=== PATIENT | female | born 1960 | race Caucasian/White ===

== ENCOUNTER 2016-11-07 07:58 | Emergency (ER) | payer SELFPAY ==
[~2016-11-07] VITALS: Ht 165.1 cm; Wt 98.1 kg
[~2016-11-07 07:58] MED LIST: AMOX875 PO; BENZ100 PO
[2016-11-07 08:01] VITALS: BP 179/100; PULSE 94; RESP 16; TEMP 98.2; O2SAT 100
[2016-11-07] MEDS ORDERED: SODIUM CHLOR 0.9% 1000 ML INJ 1,000 ML IV SCH (08:18)
--- NOTE | 2016-11-07 08:24 | PD ---
HPI Chief Complaint: GI Complaint Time Seen by Provider: 08:18 Travel History International Travel<30 days: No Contact w/Intl Traveler<30days: No Traveled to known affect area: No History of Present Illness HPI The patient is a 56-year-old female who presents to the emergency department for hematuria and hematochezia. Patient has a one day history of hematuria, states she had bright red blood in her urine yesterday. The patient states she had mild frequency and low back pain yesterday with urination, however, denies any symptoms today. She also complains of one episode of bright red blood on top of her stool yesterday. The patient denies any known history of hemorrhoids or diverticulosis. The patient does complain of low back pain, has a history of hematuria secondary to nephrolithiasis in the past. However, she states this pain, discomfort, and hematuria is different than her previous episodes related to nephrolithiasis. The patient also complains of a dry nonproductive cough without any shortness of breath. The patient does have a history of tobacco use. She denies any fever, chills, or sweats. She does note mild nausea but denies any vomiting or diarrhea. The patient does not currently have a primary physician and has never undergone colonoscopy in the past. PFSH Past Medical History Diminished Hearing: No Hypertension: Yes (NOT TREATED) Kidney Stones: Yes Integumentary: Yes (MRSA) Influenza Vaccination: No ?: Not Menopausal: Yes Past Surgical History Abdominal Surgery: Yes (RT ADRENAL TUMOR REMOVED) Endocrine Surgery: Yes (ADRENAL GLAND REMOVED ON KIDNEY) Genitourinary Surgery: Yes Pacemaker: No Other Surgery: Yes (SURGERY X 4 R 3RD FINGER; MRSA) Social History Alcohol Use: No Tobacco Use: Yes (/2 PPD) Substance Use: No Allergies-Medications (Allergen,Severity, Reaction): Coded Allergies: Toradol (Verified Allergy, Severe, "I GOT ANXIETY", 11/07/16) Reported Meds & Prescriptions Reported Meds & Active Scripts Active No Active Prescriptions or Reported Medications Review of Systems Except as stated in HPI: all other systems reviewed are Neg General / Constitutional: No: Fever Cardiovascular: No: Chest Pain or Discomfort Respiratory: Positive: Cough, No: Shortness of Breath Gastrointestinal: Positive: Nausea, Hematochezia, No: Vomiting, Diarrhea, Abdominal Pain Genitourinary: Positive: Urgency, Hematuria, No: Flank Pain Musculoskeletal: No: Weakness Neurologic: No: Dizziness Physical Exam Narrative GENERAL: Awake, alert, nontoxic-appearing 56-year-old female who appears her stated age and is in no acute respiratory distress. SKIN: Warm and dry. HEAD: Atraumatic. Normocephalic. EYES: No injection or drainage. ENT: No nasal bleeding or discharge. Mucous membranes pink and moist. NECK: Trachea midline. No JVD. CARDIOVASCULAR: Regular rate and rhythm. No murmur appreciated. RESPIRATORY: No accessory muscle use. Clear to auscultation. Breath sounds equal bilaterally. GASTROINTESTINAL: Abdomen soft, non-tender, nondistended. Rectal: Exam was performed in the presence of a female nurse. No visible external hemorrhoids. No gross blood on digital exam. Guaiac negative. Back: No CVA tenderness. MUSCULOSKELETAL: No obvious deformities. No clubbing. No cyanosis. No edema. NEUROLOGICAL: Awake and alert. No obvious cranial nerve deficits. Motor grossly within normal limits. Normal speech. PSYCHIATRIC: Appropriate mood and affect; insight and judgment normal. Data Data Last Documented VS Vital Signs Date Time Temp Pulse Resp B/P Pulse Ox O2 Delivery O2 Flow Rate FiO2 11/07/16 08:33 100 Room Air 11/07/16 08:01 98.2 94 16 179/100 Orders Urinalysis - C+S If Indicated (11/07/16 08:02) Complete Blood Count With Diff (11/07/16 08:18) Comprehensive Metabolic Panel (11/07/16 08:18) Prothrombin Time / Inr (Pt) (11/07/16 08:18) Act Partial Throm Time (Ptt) (11/07/16 08:18) Ct Abd/Pel W/O Iv Contrast (11/07/16 08:18) Iv Access Insert/Monitor (11/07/16 08:18) Ecg Monitoring (11/07/16 08:18) Oximetry (11/07/16 08:18) Sodium Chlor 0.9% 1000 Ml Inj (Ns 1000 M (11/07/16 08:18) Sodium Chloride 0.9% Flush (Ns Flush) (11/07/16 08:30) Chest, Single Ap (11/07/16 08:18) Ed Urine Pregnancytest Poc (11/07/16 08:18) Acetaminophen (Tylenol) (11/07/16 09:15) Labs Laboratory Tests Test 11/07/16 11/07/16 08:10 08:50 Urine Collection Type CLEAN CATCH Urine Color YELLOW Urine Turbidity CLEAR Urine pH 6.0 Urine Specific [place] 1.020 Urine Protein NEG mg/dL Urine Glucose (UA) NEG mg/dL Urine Ketones NEG mg/dL Urine Occult Blood LARGE Urine Nitrite NEG Urine Bilirubin NEG Urine Leukocyte Esterase TRACE Urine RBC 20-24 /hpf Urine WBC 0-2 /hpf Urine Squamous Epithelial 0-5 /hpf Cells Microscopic Urinalysis Comment CULT NOT INDICATED White Blood Count 7.3 TH/MM3 Red Blood Count 5.54 MIL/MM3 Hemoglobin 15.6 GM/DL Hematocrit 46.5 % Mean Corpuscular Volume 84.0 FL Mean Corpuscular Hemoglobin 28.2 PG Mean Corpuscular Hemoglobin 33.6 % Concent Red Cell Distribution Width 12.5 % Platelet Count 260 TH/MM3 Mean Platelet Volume 8.7 FL Neutrophils (%) (Auto) 67.3 % Lymphocytes (%) (Auto) 25.0 % Monocytes (%) (Auto) 5.0 % Eosinophils (%) (Auto) 1.9 % Basophils (%) (Auto) 0.8 % Neutrophils # (Auto) 4.9 TH/MM3 Lymphocytes # (Auto) 1.8 TH/MM3 Monocytes # (Auto) 0.4 TH/MM3 Eosinophils # (Auto) 0.1 TH/MM3 Basophils # (Auto) 0.1 TH/MM3 CBC Comment DIFF FINAL Differential Comment Prothrombin Time 10.4 SEC Prothromb Time International 0.9 RATIO Ratio Activated Partial 26.3 SEC Thromboplast Time Sodium Level 144 MEQ/L Potassium Level 3.9 MEQ/L Chloride Level 109 MEQ/L Carbon Dioxide Level 27.3 MEQ/L Anion Gap 8 MEQ/L Blood Urea Nitrogen 13 MG/DL Creatinine 0.67 MG/DL Estimat Glomerular Filtration 92 ML/MIN Rate Random Glucose 97 MG/DL Calcium Level 8.6 MG/DL Total Bilirubin 0.8 MG/DL Aspartate Amino Transf 8 U/L (AST/SGOT) Alanine Aminotransferase 11 U/L (ALT/SGPT) Alkaline Phosphatase 109 U/L Total Protein 6.8 GM/DL Albumin 3.5 GM/DL MDM Medical Decision Making Medical Screen Exam Complete: Yes Emergency Medical Condition: Yes Medical Record Reviewed: Yes Interpretation(s) Laboratory Tests Test 11/07/16 11/07/16 08:10 08:50 Urine Collection Type CLEAN CATCH Urine Color YELLOW Urine Turbidity CLEAR Urine pH 6.0 Urine Specific [place] 1.020 Urine Protein NEG mg/dL Urine Glucose (UA) NEG mg/dL Urine Ketones NEG mg/dL Urine Occult Blood LARGE Urine Nitrite NEG Urine Bilirubin NEG Urine Leukocyte Esterase TRACE Urine RBC 20-24 /hpf Urine WBC 0-2 /hpf Urine Squamous Epithelial 0-5 /hpf Cells Microscopic Urinalysis Comment CULT NOT INDICATED White Blood Count 7.3 TH/MM3 Red Blood Count 5.54 MIL/MM3 Hemoglobin 15.6 GM/DL Hematocrit 46.5 % Mean Corpuscular Volume 84.0 FL Mean Corpuscular Hemoglobin 28.2 PG Mean Corpuscular Hemoglobin 33.6 % Concent Red Cell Distribution Width 12.5 % Platelet Count 260 TH/MM3 Mean Platelet Volume 8.7 FL Neutrophils (%) (Auto) 67.3 % Lymphocytes (%) (Auto) 25.0 % Monocytes (%) (Auto) 5.0 % Eosinophils (%) (Auto) 1.9 % Basophils (%) (Auto) 0.8 % Neutrophils # (Auto) 4.9 TH/MM3 Lymphocytes # (Auto) 1.8 TH/MM3 Monocytes # (Auto) 0.4 TH/MM3 Eosinophils # (Auto) 0.1 TH/MM3 Basophils # (Auto) 0.1 TH/MM3 CBC Comment DIFF FINAL Differential Comment Prothrombin Time 10.4 SEC Prothromb Time International 0.9 RATIO Ratio Activated Partial 26.3 SEC Thromboplast Time Sodium Level 144 MEQ/L Potassium Level 3.9 MEQ/L Chloride Level 109 MEQ/L Carbon Dioxide Level 27.3 MEQ/L Anion Gap 8 MEQ/L Blood Urea Nitrogen 13 MG/DL Creatinine 0.67 MG/DL Estimat Glomerular Filtration 92 ML/MIN Rate Random Glucose 97 MG/DL Calcium Level 8.6 MG/DL Total Bilirubin 0.8 MG/DL Aspartate Amino Transf 8 U/L (AST/SGOT) Alanine Aminotransferase 11 U/L (ALT/SGPT) Alkaline Phosphatase 109 U/L Total Protein 6.8 GM/DL Albumin 3.5 GM/DL Last Impressions Chest X-Ray 11/07/16 0818 Signed Impressions: Service Date/Time: Monday, November 07, 2016 08:32 - CONCLUSION: Normal examination. Sandeep Pickering MD Abdomen/Pelvis CT 1/25/17 0818 Signed Impressions: Service Date/Time: Monday, November 07, 2016 09:02 - CONCLUSION: 1 cm calculus right kidney in the pelvis at the UPJ. Varying areas of cortical retraction midpole of the right kidney secondary to remote inflammatory change and a few punctate calyceal nonobstructing stones. Uncomplicated diverticuli descending and sigmoid colon. Sandeep Pickering MD Differential Diagnosis Differential diagnosis includes hemorrhagic cystitis, cystitis, nephrolithiasis , internal hemorrhoids, diverticulosis, upper GI bleed, colon cancer, anal fissure. Narrative Course IV was established, labs were drawn and sent, and the patient was placed on cardiac telemetry monitoring and continuous pulse oximetry monitoring. Rectal exam was performed, no gross blood on exam and exam was guaiac negative. CT of the abdomen and pelvis was ordered to evaluate for nephrolithiasis. UA was sent to lab. Bedside UA test was negative. UA reveals RBCs and blood , no evidence of infection. Hemoglobin was 15.6, no evidence of anemia. Bilirubin and BUN/creatinine were within normal limits. Chest x-ray was clear. The patient's CT does reveal a 1 cm stone in the right kidney in the pelvis at the junction of the UPJ, however, there is no hydronephrosis. The patient will be prescribed pain medications in given a mandatory referral to see urology as she may need further intervention as the stone is 1 cm. The patient has no considerable pain now and only wanted Tylenol in the emergency department. [facility] Point of Care Internal Pos. & Neg. Controls: Passed Fecal Specimen Occult Blood: Negative Diagnosis Primary Impression: Nephrolithiasis Additional Impression: Hematuria Referrals: Constantine Cuellar MD call for appointment Patient Instructions: General Instructions Additional Instructions: Pain medications as directed. Follow-up with urology. Return if symptoms worsen or progress. Med/Other Pt SpecificInfo: Prescription(s) given Scripts Hydrocodone-Acetaminophen ([place])10-325 Mg Tab1 Tab PO Q6H PRN (PAIN) #20 TAB Ref 0 Prov:Kody James MD 11/07/16 Disposition: 01 DISCHARGE HOME Condition: Stable Kody James MD Nov 07, 2016 08:23
[2016-11-07] MEDS ORDERED: SODIUM CHLORIDE 0.9% FLUSH 5 ML FLUSH IVF PRN (08:30)
[2016-11-07 08:31] LABS: BLOOD, URINE LARGE (NEG); GLUCOSE,URINE NEG (NEG); KETONE, URINE NEG (NEG); NITRITE,URINE NEG (NEG)
[2016-11-07 08:33] VITALS: O2SAT 100
[2016-11-07 08:33] LABS: METHOD OF COLLECTION CLEAN CATCH; URINE COLOR YELLOW (YELLW/STRAW)
[2016-11-07 08:36] LABS: COMMENT (UR) CULT NOT INDICATED; CULTURE IF INDICATED CULT NOT INDICATED; SQUAMOUS EPITHELIAL CELL URINE 0-5 /hpf (0-5); WBC, URINE 0-2 /hpf (0-5)
[2016-11-07 08:55] LABS: AUTOMATED NEUTROPHIL # 4.9 TH/MM3 (1.8-7.7); BASOPHIL # 0.1 TH/MM3 (0-0.2); BASOPHIL % 0.8 % (0.0-2.0); EOSINOPHIL # 0.1 TH/MM3 (0-0.4); EOSINOPHIL % 1.9 % (0.0-4.0); HEMATOCRIT 46.5 % (35.0-46.0); HEMO FLAGS DIFF FINAL; LYMPHOCYTE # 1.8 TH/MM3 (1.0-4.8); MEAN CORPUSCULAR HEMOGLOBIN 28.2 PG (27.0-34.0); MEAN CORPUSCULAR HGB CONC 33.6 % (32.0-36.0); NEUT % 67.3 % (16.0-70.0); PLATELET COUNT 260 TH/MM3 (150-450); RED BLOOD COUNT 5.54 MIL/MM3 (4.00-5.30); RED CELL DISTRIBUTION WIDTH 12.5 % (11.6-17.2); WHITE BLOOD COUNT 7.3 TH/MM3 (4.0-11.0)
[2016-11-07 09:02] LABS: CHLORIDE 109 MEQ/L (98-107); POTASSIUM 3.9 MEQ/L (3.5-5.1); SODIUM (NA) 144 MEQ/L (136-145)
[2016-11-07 09:06] LABS: ANION GAP 8 MEQ/L (5-15); APTT (PATIENT) 26.3 SEC (24.3-30.1); BICARBONATE 27.3 MEQ/L (21.0-32.0); BLOOD UREA NITROGEN 13 MG/DL (7-18); INTERNATIONAL NORMALIZED RATIO 0.9 RATIO; PROTHROMBIN TIME - PATIENT 10.4 SEC (9.8-11.6)
[2016-11-07 09:09] LABS: ALT (GPT) 11 U/L (10-53); AST (GOT) 8 U/L (15-37); GLOMERULAR FILTRATION RATE 92 ML/MIN (>89)
[2016-11-07 09:11] LABS: TOTAL BILIRUBIN ADULT 0.8 MG/DL (0.2-1.0)
[2016-11-07 09:12] LABS: ALKALINE PHOSPHATASE 109 U/L (45-117)
[2016-11-07] MEDS ORDERED: ACETAMINOPHEN 325 MG TAB PO ONE (09:15)
--- NOTE | 2016-11-07 09:17 | RADHPO ---
EXAM DATE/TIME: 11/07/2016 09:02 [facility] COMPARISON: No previous studies available for comparison. INDICATIONS : Hematuria and low back pain since yesterday. ORAL CONTRAST: No oral contrast ingested. RADIATION DOSE: 23.62 CTDIvol (mGy) MEDICAL HISTORY : Hypertension. SURGICAL HISTORY : Right adrenalectomy. ENCOUNTER: Initial ACUITY: 2 days PAIN SCALE: 4/10 LOCATION: abdomen/pelvis TECHNIQUE: Volumetric scanning of the abdomen and pelvis was performed. Using automated exposure control and adjustment of the mA and/or kV according to patient size, radiation dose was kept as low as reasonably achievable to obtain optimal diagnostic quality images. FINDINGS: LOWER LUNGS: The visualized lower lungs are clear. LIVER: Homogeneous density without lesion. There is no dilation of the biliary tree. No calcifi ed gallstones. Gallbladder seen as luminal structure without wall thickening SPLEEN: Normal size without lesion. PANCREAS: Within normal limits. KIDNEYS: Normal in size and shape. There is no mass or hydronephrosis. There is a 1 cm stone in the right collecting system renal pelvis at or near the UPJ without hydronephrosis. There are a few a reas of cortical retraction midpole the right kidney. ADRENAL GLANDS: Within normal limits. VASCULAR: There is no aortic aneurysm. BOWEL/MESENTERY: The stomach, small bowel, and colon demonstrate no acute abnormality. There is no free intraperitoneal air or fluid. Uncomplicated diverticulitis of the descending and proximal sig moid colon. ABDOMINAL WALL: Within normal limits. RETROPERITONEUM: There is no lymphadenopathy. BLADDER: No wall thickening or mass. REPRODUCTIVE: Within normal limits. INGUINAL: There is no lymphadenopathy or hernia. MUSCULOSKELETAL: Within normal limits for patient age. CONCLUSION: 1 cm calculus right kidney in the pelvis at the UPJ. Varying areas of cortical retrac tion midpole of the right kidney secondary to remote inflammatory change and a few punctate calyceal nonobstructing stones. Uncomplicated diverticuli descending and sigmoid colon. Sandeep Pickering MD on November 07, 2016 at 9:11 Board Certified Radiologist. This report was verified electronically.
--- NOTE | 2016-11-07 09:17 | RADHPO ---
EXAM DATE/TIME: 11/07/2016 08:32 [facility] COMPARISON: No previous studies available for comparison. INDICATIONS : Cough. MEDICAL HISTORY : None. SURGICAL HISTORY : None. ENCOUNTER: Initial ACUITY: 2 weeks PAIN SCORE: 0/10 LOCATION: Bilateral chest FINDINGS: A single view of the chest demonstrates the lungs to be symmetrically aerated without evidence of mas s, infiltrate or effusion. The cardiomediastinal contours are unremarkable. Osseous structures are intact. CONCLUSION: Normal examination. Sandeep Pickering MD on November 07, 2016 at 9:16 Board Certified Radiologist. This report was verified electronically.
[2016-11-07] MEDS ORDERED: HYDR-3366 PO (09:29)
[2016-11-07 09:50] VITALS: BP 132/84
[2016-12-06] MEDS ORDERED: ACET1CAP18 PO (10:29)
[2016-12-06] MEDS ORDERED: PERC5TAB12 PO (11:29)
[2016-12-19] MEDS ORDERED: PERC5TAB12 PO (08:18)
== END 2016-11-07 09:51 | disposition home or self-care (01) ==
LOC: PHED 07:58
DX: N20.0 Calculus of kidney (principal); R31.9 Hematuria, unspecified; F17.210 Nicotine dependence, cigarettes, uncomplicated
CPT/HCPCS: 71010; 74176; 80053; 81001; 84703; 85025; 85610; 85730; 96360; 99284; J7030

== ENCOUNTER 2016-11-23 10:49 | Emergency (ER) | payer OTHER ==
[~2016-11-23] VITALS: Ht 165.1 cm; Wt 95.0 kg
[~2016-11-23 10:49] MED LIST changes: -AMOX875 PO; -BENZ100 PO; +HYDR-3366 PO
[2016-11-23 10:52] VITALS: BP 197/100; PULSE 82; RESP 18; TEMP 98.2; O2SAT 97
--- NOTE | 2016-11-23 12:37 | PD ---
HPI . needs refills on pain meds for kidney stones Chief Complaint: Flank/Kidney Pain Time Seen by Provider: 12:29 Travel History International Travel<30 days: No Contact w/Intl Traveler<30days: No Traveled to known affect area: No History of Present Illness HPI 56 yr old female with nephrolithiasis here and needs refills on her pain meds. She is scheduled to see urology, but does not have an appt until end of Nov. She has no complaints today other than occasional intermittent flank pain. She tells me that she is a of having kidney stones and that she is nowhere near admission status. She denies any dysuria, urinary hesitancy, or back pain. She is anxious about being in the ED. PFSH Past Medical History Diminished Hearing: No Hypertension: Yes (NOT TREATED) Kidney Stones: Yes Integumentary: Yes (MRSA) ?: Not Menopausal: Yes : 2 Para: 2 Past Surgical History Abdominal Surgery: Yes (ADRENAL TUMOR REMOVED) Endocrine Surgery: Yes (ADRENAL GLAND REMOVED ON KIDNEY) Genitourinary Surgery: Yes Pacemaker: No Other Surgery: Yes (SURGERY X 4 R 3RD FINGER; MRSA) Social History Alcohol Use: No Tobacco Use: Yes (10/15 PPD) Substance Use: No Allergies-Medications (Allergen,Severity, Reaction): Coded Allergies: Toradol (Verified Allergy, Severe, "I GOT ANXIETY", 11/23/16) Reported Meds & Prescriptions Reported Meds & Active Scripts Active Tramadol (Tramadol HCl) 50 Mg Tab 50 Mg PO Q8H PRN Review of Systems General / Constitutional: No: Fever Eyes: No: Visual changes HENT: No: Headaches Cardiovascular: No: Chest Pain or Discomfort Respiratory: No: Shortness of Breath Gastrointestinal: No: Abdominal Pain Genitourinary: No: Dysuria Musculoskeletal: Positive: Pain (intermittent flank pain) Skin: No Rash Neurologic: No: Weakness Psychiatric: No: Depression Endocrine: No: Polydipsia Hematologic/Lymphatic: No: Easy Bruising Physical Exam Narrative GENERAL: AAO x 3, no acute distress, Well-nourished, well-developed patient. Comfortable on exam bed. SKIN: Warm and dry. No visible rashes or bruising. HEAD: Normocephalic and atraumatic. EYES: No scleral icterus. No injection or drainage. ENT: No nasal drainage noted. Mucous membranes pink. Airway patent. NECK: Supple, trachea midline. No JVD. CARDIOVASCULAR: Regular rate and rhythm without murmurs, gallops, or rubs. RESPIRATORY: Breath sounds equal bilaterally. No accessory muscle use. No rhonchi or rales. GASTROINTESTINAL: Abdomen soft, non-tender, nondistended. NO suprapubic tenderness. EXTREMITIES: No cyanosis or edema. BACK: Nontender without obvious deformity. No CVA tenderness. PSYCH: AAO x 3, normal affect. Data Data Last Documented VS Vital Signs Date Time Temp Pulse Resp B/P Pulse Ox O2 Delivery O2 Flow Rate FiO2 11/23/16 12:50 97.8 76 17 152/96 99 MDM Medical Decision Making Medical Screen Exam Complete: Yes Emergency Medical Condition: Yes Differential Diagnosis nephrolithiasis, back pain, Narrative Course 56 yr old female with nephrolithiasis here and needs refills on her pain meds. She is scheduled to see urology, but does not have an appt until end of Nov. She has no complaints today other than occasional intermittent flank pain. She tells me that she is a of having kidney stones and that she is nowhere near admission status. She denies any dysuria, urinary hesitancy, or back pain. She is anxious about being in the ED. She only needs med refills. bp elevated likely due to anxiety of being in ED. Rechecked prior to dc 156/94 Patient advised to try to get into Urology as soon as possible. Patient verbalized understanding of instructions, questions were answered, and thanked me for their care. I advised them if their condition worsens, please return to the nearest emergency room for further care. Diagnosis Primary Impression: Nephrolithiasis Additional Impression: Elevated blood pressure reading without diagnosis of hypertension Patient Instructions: General Instructions, Kidney Stones (ED) Additional Instructions: Try to get in with the urologist as soon as possible. Take medications as prescribed. Try to establish with a primary care doctor to help navigate your care. Med/Other Pt SpecificInfo: Prescription(s) given Scripts Tramadol 50 Mg Tab50 Mg PO Q8H PRN (PAIN) #20 TAB Ref 0 Prov:Ross Medel MD 11/23/16 Disposition: 01 DISCHARGE HOME Condition: Stable Ana Davalos Nov 23, 2016 12:37
[2016-11-23] MEDS ORDERED: TRAM50TA PO (12:38)
[2016-11-23 12:50] VITALS: BP 152/96; TEMP 97.8
[2016-12-06] MEDS ORDERED: ACET1CAP18 PO (10:29)
[2016-12-06] MEDS ORDERED: PERC5TAB12 PO (11:29)
[2016-12-19] MEDS ORDERED: PERC5TAB12 PO (08:18)
== END 2016-11-23 12:50 | disposition home or self-care (01) ==
LOC: NEPB 10:49
DX: N20.0 Calculus of kidney (principal); R03.0 Elevated blood-pressure reading, without diagnosis of hypertension; F17.200 Nicotine dependence, unspecified, uncomplicated; Z87.442 Personal history of urinary calculi; Z86.14 Personal history of Methicillin resistant Staphylococcus aureus infection
CPT/HCPCS: 99281

== ENCOUNTER → 2016-12-19 | Day surgery (SDC) | payer OTHER ==
[~2016-12-19] VITALS: Ht 165.1 cm; Wt 97.3 kg
[~2016-12-19] MED LIST changes: +ACET1CAP18 PO; +ACETAMINOPHEN 1000 MG/100 ML VIAL IV ONE; -HYDR-3366 PO; +INSULIN HUMAN REGULAR 1,000 UNITS/10 ML VIAL SQ PRN; +KETAMINE HCL 500 MG/5 ML VIAL ONE; +LACTATED RINGER'S 1000 ML IV SCH; +METOPROLOL TARTRATE 25 MG TAB PO PRN; +MIDAZOLAM HCL 2 MG/2 ML VIAL ONE; +ONDANSETRON HCL 4 MG/2 ML VIAL IV PUSH PRN; +PERC5TAB12 PO; +PROPOFOL 200 MG/20 ML AMP IV ONE; +SODIUM CHLORID 0.9% 500 ML IV SCH; +oxyCODONE/ACETAMINOPHEN 5 MG/325 MG TAB PO PRN
[2016-12-19 05:59] VITALS: BP 131/86; PULSE 86; RESP 18; TEMP 98.3; O2SAT 96
[2016-12-19 06:14] LABS: AUTOMATED NEUTROPHIL # 5.1 TH/MM3 (1.8-7.7); BASOPHIL % 0.6 % (0.0-2.0); EOSINOPHIL # 0.2 TH/MM3 (0-0.4); EOSINOPHIL % 2.4 % (0.0-4.0); HEMATOCRIT 43.6 % (35.0-46.0); HEMO FLAGS DIFF FINAL; LYMPH % 25.3 % (9.0-44.0); LYMPHOCYTE # 1.9 TH/MM3 (1.0-4.8); MEAN CELL VOLUME 83.4 FL (80.0-100.0); MEAN CORPUSCULAR HEMOGLOBIN 28.7 PG (27.0-34.0); MEAN CORPUSCULAR HGB CONC 34.4 % (32.0-36.0); MONO % 6.2 % (0.0-8.0); NEUT % 65.5 % (16.0-70.0); PLATELET COUNT 210 TH/MM3 (150-450); RED BLOOD COUNT 5.22 MIL/MM3 (4.00-5.30); RED CELL DISTRIBUTION WIDTH 13.3 % (11.6-17.2); WHITE BLOOD COUNT 7.7 TH/MM3 (4.0-11.0)
--- NOTE | 2016-12-19 06:33 | RADRPT ---
EXAM DATE/TIME: 12/19/2016 06:07 [facility] COMPARISON: No previous studies available for comparison. INDICATIONS : Preop abdomen for right side ESWL. Renal calculi. MEDICAL HISTORY : Renal calculi. Hypertension SURGICAL HISTORY : Renal calculi removal. Right adrenalectomy. ENCOUNTER: Initial ACUITY: 1 day PAIN SCORE: 6/10 LOCATION: Left lower quadrant abdomen FINDINGS: Supine view of the abdomen was performed. The abdominal bowel gas pattern is normal. 9 mm calculus p rojecting over the right renal shadow. Mild levoscoliosis of the lumbar spine. Osseous structures are otherwise intact. CONCLUSION: 9 mm calculus projecting over the right renal shadow. This appears to be isolated. Uri Cano MD on December 19, 2016 at 6:30 Board Certified Radiologist. This report was verified electronically.
--- NOTE | 2016-12-19 08:17 | PD.OP ---
Operative Report Date of Surgery: Dec 19, 2016 Preoperative Diagnosis: (1) Renal calculus, right Postoperative Diagnosis: (1) Renal calculus, right Procedure: Extracorporeal shockwave lithotripsy of right renal calculus Anesthesia: General Surgeon: Constantine Cuellar Appraiser [employer](s): None Operation and Findings: Indication for procedure: Case of a pleasant 56-year-old female with an approximately 1 cm right renal calculus who presents today to undergo extracorporeal shockwave lithotripsy. Procedure in detail: Patient was brought to the operating room suite and placed supine on the lithotripsy table. She was next placed under general anesthesia. After an appropriate timeout was undertaken I proceeded with localizing the patient's right renal calculus with fluoroscopy. She then received extracorporeal shockwave lithotripsy utilizing the Nugg-it Piezolith 3000 device. The patient received a total of 3000 shocks with a maximum power level setting of 20. At conclusion of the procedure the stone was much light bulb tester in intensity and spread out consistent with fragmentation. She tolerated the procedure without complications and was transferred to the PACU in satisfactory condition. Constantine Cuellar MD Dec 19, 2016 08:17
[2016-12-19 09:23] VITALS: BP 138/85; PULSE 61; RESP 18; TEMP 97.4; O2SAT 97
--- NOTE | 2016-12-19 18:30 | EKG ---
Date Performed: 12/19/2016 Time Performed: 06:22:44 PTAGE: 56 years EKG: Sinus rhythm . Left axis deviation Septal T wave changes are nonspecific Abnormal ECG NO PREVIOUS TRACING DOCTOR: Rajesh Arroyo Interpretating Date/Time 12/19/2016 18:29:25
== END | disposition home or self-care (01) ==
LOC: HSDC 05:23
PROVIDERS: ATTEND Urology
DX: N20.0 Calculus of kidney (principal); R10.2 Pelvic and perineal pain; I10 Essential (primary) hypertension
CPT/HCPCS: 00873; 50590; 74000; 85025; 93005; J0131; J2250; J3010; J7120

== ENCOUNTER 2017-12-24 07:16 | Emergency (ER) | payer OTHER ==
[~2017-12-24] VITALS: Ht 165.1 cm; Wt 101.0 kg
[~2017-12-24 07:16] MED LIST changes: -ACETAMINOPHEN 1000 MG/100 ML VIAL IV ONE; -INSULIN HUMAN REGULAR 1,000 UNITS/10 ML VIAL SQ PRN; -KETAMINE HCL 500 MG/5 ML VIAL ONE; -LACTATED RINGER'S 1000 ML IV SCH; -METOPROLOL TARTRATE 25 MG TAB PO PRN; -MIDAZOLAM HCL 2 MG/2 ML VIAL ONE; -ONDANSETRON HCL 4 MG/2 ML VIAL IV PUSH PRN; -PROPOFOL 200 MG/20 ML AMP IV ONE; -SODIUM CHLORID 0.9% 500 ML IV SCH; -oxyCODONE/ACETAMINOPHEN 5 MG/325 MG TAB PO PRN
[2017-12-24 07:18] VITALS: BP 169/79; PULSE 97; RESP 16; TEMP 98.2; O2SAT 96
[2017-12-24 09:00] VITALS: BP 135/79; PULSE 81; RESP 18; O2SAT 96
--- NOTE | 2017-12-24 09:05 | RADRPT ---
EXAM DATE/TIME: 12/24/2017 08:17 [facility] COMPARISON: No previous studies available for comparison. INDICATIONS : Cough and flu like symptoms for 1 week. MEDICAL HISTORY : None. SURGICAL HISTORY : None. ENCOUNTER: Initial ACUITY: 1 week PAIN SCORE: 0/10 LOCATION: Bilateral chest FINDINGS: PA and lateral views of the chest demonstrate the lungs to be symmetrically aerated without evidence of mass, infiltrate or effusion. The cardiomediastinal contours are unremarkable. Osseous structure s are intact. CONCLUSION: No acute disease. Mitchel Mix MD on December 24, 2017 at 9:01 Board Certified Radiologist. This report was verified electronically.
[2017-12-24] MEDS ORDERED: HUMIBIDDM PO (09:10)
[2017-12-24] MEDS ORDERED: ZITHTAB PO (09:10)
--- NOTE | 2017-12-24 09:11 | PD ---
HPI Chief Complaint: GI Complaint Time Seen by Provider: 08:06 Travel History International Travel<30 days: No Contact w/Intl Traveler<30days: No Traveled to known affect area: No History of Present Illness HPI This is a 57-year-old female presents here complaining of cough and fever for the last 6 days. Fever T-max is 101, cough is productive of yellow sputum but no blood. Patient denies any nausea or vomiting diarrhea there is no chest pain or shortness of breath or abdominal pain. Patient tried [id number] medications for her cough and did not help. Patient also reports some headache and facial pain comes and goes. No recent travel or sick contacts. PFSH Past Medical History Hx Anticoagulant Therapy: No Cancer: No Cardiovascular Problems: No Diabetes: No Diminished Hearing: No Endocrine: No Genitourinary: No Hepatitis: No Hiatal Hernia: No Hypertension: Yes (NOT TREATED) Immune Disorder: No Kidney Stones: Yes Musculoskeletal: No Neurologic: No Psychiatric: No Reproductive: No Respiratory: No Integumentary: Yes (MRSA) Thyroid Disease: No Influenza Vaccination: No ?: Not Menopausal: Yes : 2 Para: 2 Past Surgical History Abdominal Surgery: Yes AICD: No Cardiac Surgery: No Ear Surgery: No Endocrine Surgery: Yes (ADRENAL GLAND AND MASS REMOVED ON KIDNEY) Eye Surgery: No Genitourinary Surgery: Yes Gynecologic Surgery: No Joint Replacement: No Pacemaker: No Thoracic Surgery: No Other Surgery: Yes (SURGERY X 4 R 3RD FINGER; MRSA) Social History Alcohol Use: No Tobacco Use: No (1/2 PPD) Substance Use: No Allergies-Medications (Allergen,Severity, Reaction): Coded Allergies: ketorolac (Unverified Allergy, Severe, "I GOT ANXIETY", 12/24/17) Reported Meds & Prescriptions Reported Meds & Active Scripts Active Review of Systems Except as stated in HPI: all other systems reviewed are Neg Physical Exam Narrative GENERAL: Alert oriented 3 no acute distress. SKIN: Focused skin assessment warm/dry. HEAD: Atraumatic. Normocephalic. EYES: Pupils equal and round. No scleral icterus. No injection or drainage. ENT: No nasal bleeding or discharge. Mucous membranes pink and moist. NECK: Trachea midline. No JVD. CARDIOVASCULAR: Regular rate and rhythm. No murmur appreciated. RESPIRATORY: No accessory muscle use. Mild rhonchi bilaterally GASTROINTESTINAL: Abdomen soft, non-tender, nondistended. Hepatic and splenic margins not palpable. MUSCULOSKELETAL: No obvious deformities. No clubbing. No cyanosis. No edema. NEUROLOGICAL: Awake and alert. No obvious cranial nerve deficits. Motor grossly within normal limits. Normal speech. PSYCHIATRIC: Appropriate mood and affect; insight and judgment normal. Data Data Last Documented VS Vital Signs Date Time Temp Pulse Resp B/P (MAP) Pulse Ox O2 Delivery O2 Flow Rate FiO2 12/24/17 07:18 98.2 97 16 169/79 (109) 96 Orders Orders Chest, Pa & Lat (12/24/17 ) MDM Medical Decision Making Medical Screen Exam Complete: Yes Emergency Medical Condition: Yes Differential Diagnosis Bronchitis, sinusitis, pharyngitis. Narrative Course This is a 57-year-old female presented here complaining of cough and fever for the last few days. Physical examination is positive for rhonchi bilateral lung weber, she is breathing comfortably without any shortness of breath or any accessory muscle use. She is extremity is unremarkable, I believe her symptoms to be due to bronchitis and she can be discharged with a course of antibiotics and Mucinex. I recommended patient follow-up with her primary care physician and to return to ER if symptoms change or do not improve. Diagnosis Primary Impression: Bronchitis Additional Instructions: Take medication as directed return to ER if symptoms change or do not improve. Scripts Dextromethorphan-Guaifenesin (Mucinex DM) 30-600 Mg Tab 1 TAB PO BID Y for CHEST CONGESTION AND/OR COUGH, #20 TAB 0 Refills Prov: Juan José Garcia MD 12/24/17 Azithromycin (Zithromax Z-Chan) 250 Mg Dspk 250 MG PO DIRECTED for Infection, #1 DSPK 0 Refills 500 MG (2 tabs) day 1, then 1 tab days 2-5. Prov: Juan José Garcia MD 12/24/17 Disposition: DISCHARGE HOME Condition: Stable Juan José Garcia MD Dec 24, 2017 09:11
== END 2017-12-24 09:15 | disposition home or self-care (01) ==
LOC: PHED 07:16
DX: J40 Bronchitis, not specified as acute or chronic (principal); R50.9 Fever, unspecified
CPT/HCPCS: 71046; 99283

== ENCOUNTER 2018-01-30 09:24 | Emergency (ER) | payer OTHER ==
[~2018-01-30] VITALS: Ht 165.1 cm; Wt 100.3 kg
[~2018-01-30 09:24] MED LIST changes: -ACET1CAP18 PO; +HUMIBIDDM PO; -PERC5TAB12 PO; +ZITHTAB PO
[2018-01-30 09:28] VITALS: BP 201/91; PULSE 81; RESP 16; TEMP 97.6; O2SAT 97
[2018-01-30 10:09] VITALS: BP 158/93
[2018-01-30] MEDS ORDERED: DOXY100C PO (10:22)
[2018-01-30] MEDS ORDERED: BENZ100 PO (10:22)
[2018-01-30] MEDS ORDERED: ALBUAER3 INH (10:22)
--- NOTE | 2018-01-30 10:26 | PD ---
HPI Chief Complaint: Cold / Flu Symptoms Time Seen by Provider: 09:45 Travel History International Travel<30 days: No Contact w/Intl Traveler<30days: No Traveled to known affect area: No History of Present Illness HPI 57-year-old female here with productive cough 1 week. Patient reports yellow sputum and frequent coughing occasionally with wheezing. Symptom severity is moderate. No aggravating or alleviating factors. Denies chest pain, palpitations, shortness of breath. She reports multiple sick contacts at work with similar symptoms. No fever chills. Was diagnosed and treated for bronchitis approximately 1 month ago. She was put on azithromycin which resolved symptoms. Symptoms returned 10 days ago. PFSH Past Medical History Medical History: Denies Significant Hx Hx Anticoagulant Therapy: No Cancer: No Cardiovascular Problems: No Diabetes: No Diminished Hearing: No Endocrine: No Gastrointestinal Disorders: No Genitourinary: No Hepatitis: No Hiatal Hernia: No Hypertension: Yes (NOT TREATED) Immune Disorder: No Kidney Stones: Yes Musculoskeletal: No Neurologic: No Psychiatric: No Reproductive: No Respiratory: No Integumentary: Yes (MRSA) Thyroid Disease: No Tetanus Vaccination: < 5 Years ?: Not Menopausal: Yes : 2 Para: 2 Past Surgical History Abdominal Surgery: Yes AICD: No Cardiac Surgery: No Ear Surgery: No Endocrine Surgery: Yes (ADRENAL GLAND AND MASS REMOVED ON KIDNEY) Eye Surgery: No Genitourinary Surgery: Yes Gynecologic Surgery: No Joint Replacement: No Neurologic Surgery: No Pacemaker: No Thoracic Surgery: No Other Surgery: Yes (SURGERY X 4 R 3RD FINGER; MRSA) Social History Alcohol Use: No Tobacco Use: No (1/2 PPD) Substance Use: No Allergies-Medications (Allergen,Severity, Reaction): Coded Allergies: ketorolac (Unverified Allergy, Severe, "I GOT ANXIETY", 01/30/18) Reported Meds & Prescriptions Reported Meds & Active Scripts Active Review of Systems Except as stated in HPI: all other systems reviewed are Neg General / Constitutional: No: Fever Eyes: No: Visual changes HENT: Positive: Sore Throat, Congestion, No: Headaches Respiratory: Positive: Cough, Wheezing Genitourinary: No: Dysuria Musculoskeletal: No: Pain Skin: No Rash Neurologic: No: Weakness Physical Exam Narrative GENERAL: Alert and well-appearing 57-year-old female SKIN: Warm and dry. No rash HEAD: Normocephalic. EYES: No injection or drainage. NECK: Supple, trachea midline. No JVD or lymphadenopathy. No meningismus CARDIOVASCULAR: Regular rate and rhythm without murmurs, gallops, or rubs. RESPIRATORY: Breath sounds equal bilaterally. No accessory muscle use. Mild scattered rhonchi GASTROINTESTINAL: Abdomen soft, non-tender, nondistended. MUSCULOSKELETAL: No cyanosis, or edema. BACK: Nontender without obvious deformity. No CVA tenderness. Data Data Last Documented VS Vital Signs Date Time Temp Pulse Resp B/P (MAP) Pulse Ox O2 Delivery O2 Flow Rate FiO2 01/30/18 10:09 158/93 (114) 01/30/18 09:43 16 01/30/18 09:28 97.6 81 97 MDM Medical Decision Making Medical Screen Exam Complete: Yes Emergency Medical Condition: Yes Differential Diagnosis Bronchitis, pneumonia, influenza, URI Narrative Course 57-year-old female here with productive cough 1 week. Vital signs are stable. Patient is nontoxic appearing. She has scattered rhonchi. No respiratory distress. No complaint of dyspnea. Will be treated with antibiotics, antitussives, bronchodilators. Diagnosis Primary Impression: Bronchitis Referrals: Primary Care Physician Additional Instructions: Medication as directed. Stay well hydrated and rest. Follow-up with her primary doctor. Scripts Albuterol 8.5 GM Inh (Proair Hfa 8.5 GM Inh) 90 Mcg/Act Aer 2 PUFF INH Q4-6H Y for SHORTNESS OF BREATH, #1 INHALER 0 Refills 108 mcg/actuation Prov: Lisa El 01/30/18 Benzonatate (Tessalon Perles) 100 Mg Cap 200 MG PO TID Y for COUGH for 3 Days, CAP 0 Refills Prov: Lisa El 01/30/18 Doxycycline Hyclate (Doxycycline Hyclate) 100 Mg Cap 100 MG PO BID for Infection for 7 Days, #14 CAP 0 Refills Prov: Lisa El 01/30/18 Disposition: 01 DISCHARGE HOME Condition: Stable Lisa El Jan 30, 2018 10:26
== END 2018-01-30 10:37 | disposition home or self-care (01) ==
LOC: PHED 09:24
DX: J40 Bronchitis, not specified as acute or chronic (principal); I10 Essential (primary) hypertension
CPT/HCPCS: 99283